=== PATIENT | male | born 2005 | race Two or more races ===

== ENCOUNTER 2025-04-22 01:13 | Emergency (ER) | payer OTHER ==
[~2025-04-22] VITALS: Ht 167.6 cm; Wt 72.7 kg
[2025-04-22 01:18] VITALS: BP 137/63; PULSE 86; RESP 16; TEMP 97.2; O2SAT 98
--- NOTE | 2025-04-22 02:36 | Physician Documentation ---
History of Present Illness ~ Chief Complaint: Abscess Stated Complaint: WOUND CHECK Time Seen by MD: 02:23 HPI Patient presents to the emergency room with abscess to his left buttock over the last few days. No fevers. No prior instances. Tetanus Within 5 Years: Yes Medication Reconciliation Allergies: Coded Allergies: amoxicillin (Verified Allergy, Intermediate, ITCHINESS, 04/22/25) Review of Systems ROS All review of systems negative except as per HPI Physical Exam Vital Signs: Temperature: 97.2, Source: Temporal, Heart Rate: 86, Respiratory Rate: 16, BP: 137/63, Pulse Oximetry: 98, Weight: 72.730 Oxygen Flow Rate: 0 Physical Exam General: Patient is awake, alert, oriented x4 in no acute distress and well appearing.~ Head: Normocephalic and atraumatic. Eyes: Conjunctival normal. EOMI. PERRL. ENT: Mucous membranes moist. Neck: Supple, trachea is midline. Chest: Clear to auscultation bilaterally without rales, rhonchi, or wheezes. There is no accessory muscle use or retractions. Cardiac: RRR without murmurs, gallops, or rubs. : 3 x 3 cm fluctuant abscess to left lower buttock. No cellulitis Procedures Procedures Incision and drainage: Status post informed verbal consent patient was sterilely cleaned and draped. Patient was anesthetized with 1% lidocaine with epinephrine to a total of 3 cc. 11. Blade utilized perform incision and drainage by making a 1 cm incision to abscess. Abscess was de loculated and a proximally 2 cc of purulent drainage along with some blood expressed. No packing placed. Patient tolerated procedure well without complication. Total time of procedure 10 minutes. Progress Results/Orders Results/Orders Vital Signs 04/22/25 01:18 Temp 97.2 Pulse 86 Resp 16 B/P (MAP) 137/63 Pulse Ox 98 O2 Flow Rate 0 Medical Decision Making Findings Patient presented to the emergency room for evaluation of abscess to his left buttock. Differentials include but are not limited to abscess, cellulitis, foreign body, epidermal inclusion cyst. Physical exam is consistent with abscess therefore incision and drainage was performed with good expression of purulence. ER precautions regarding signs of her worsening of symptoms and fevers. Departure Disposition: 01 HOME / SELF CARE / HOMELESS Impression: Primary Impression: Abscess Condition: Improved Discharge Instructions: Incision and Drainage Additional Instructions: I do not feel antibiotics are necessary Referrals: NO PRIMARY CARE PROVIDER (PCP) Signature Scribe Signature: No scribe Attestation: The note accurately reflects work and decisions made by me.Domo Alicea MD 04/22/25 02:36 DOMO ALICEA MD Apr 22, 2025 02:36
== END 2025-04-22 02:48 | disposition home or self-care (01) ==
LOC: ER 01:15
DX: L02.31 Cutaneous abscess of buttock (principal); Z88.0 Allergy status to penicillin
CPT/HCPCS: 10060; 99282; A6407; A6258; A6449

== ENCOUNTER 2025-06-24 22:53 | Emergency (ER) | payer OTHER ==
[2025-06-24 23:04] VITALS: BP 116/67; PULSE 112; RESP 16; O2SAT 98
[2025-06-25] MEDS: sulfamethoxazole/trimethoprim DS (800/160mg) tablet PO ONE (01:03)
--- NOTE | 2025-06-25 01:28 | Physician Documentation ---
History of Present Illness ~ Chief Complaint: Abscess Stated Complaint: BUTTOCKS ABCESS Time Seen by MD: 01:24 HPI 19-year-old male presenting with a abscess on his left buttocks. He tells me that he has had 1 abscess in the past. It did have to be drained. Over the past week he has developed an area of swelling and pain over his left buttocks. Today it started to spontaneously drain some purulent material. No fevers, chills, or other infectious type symptoms. Allergy to amoxicillin Tetanus Within 5 Years: Yes Medication Reconciliation Allergies: Coded Allergies: amoxicillin (Verified Allergy, Intermediate, ITCHINESS, 06/24/25) Scheduled Sulfamethoxazole/Trimethoprim (Bactrim Ds Tablet), 1 TAB PO Q12H Review of Systems Constitutional: Denies: fever Integumentary: Reports: lumps Physical Exam Vital Signs: Temperature: 97.8, Source: Temporal, Heart Rate: 112, Respiratory Rate: 16, BP: 116/67, Pulse Oximetry: 98 Physical Exam General: This is a thin healthy-appearing young man, not in acute distress HEENT: Atraumatic, oropharynx is moist Heart: Mild tachycardic, appears regular Lungs: normal work of breathing, normal oxygen saturation on room air Buttocks: The exam was chaperoned by a nurse at all times. On the mid left buttocks, the patient has an area of induration and tenderness measuring around 8 cm in diameter, with a small opening with purulent drainage Neuro: Alert and oriented Psychiatric: Calm and cooperative with exam Procedures I & D Procedure : Site: Left buttocks Anesthesia: Lidocaine w/ Epi Blade Size: 11 Prep/Supplies: dressing applied, irrigated, packing placed Incision: mass incised, pus drained Tolerated Procedure Well?: yes, no complications Procedure Note The wound was cleaned with alcohol. The open draining wound was incised and enlarged. The abscess was de loculated and large amount of purulent material was expressed. A small amount of packing was placed and then bandaged. Progress Results/Orders Results/Orders Completed Orders - ZACH LINO MD Sulfamethox/Trimetho. Ds Tab ( Ds (06/25/25 01:55) Medications Received in ER Medications (Trade) Dose Ordered Sig/Tiarra Route PRN Reason Start Time Stop Time Status Last Admin Dose Admin ( DS tab) 1 tab ONCE ONCE PO 06/25/25 01:55 11/2/25 01:56 DC 06/25/25 01:03 1 TAB Vital Signs 06/24/25 06/25/25 23:04 01:59 Temp 97.8 97.8 Pulse 112 Resp 16 B/P (MAP) 116/67 Pulse Ox 98 Medical Decision Making Additional information obtaine: N/A Findings na Differential Dx:Considerations: Include: Abscess, Cellulitis Additional Comment The patient presents with an abscess on his buttocks. It was opened and drained. He will be treated with a course of antibiotics given the location and size of the abscess. He was given home care instructions and return precautions. Departure Time of Disposition: 01:52 Disposition: HOME / SELF CARE / HOMELESS Impression: Primary Impression: Abscess Condition: Improved Discharge Instructions: Abscess, Care After Referrals: NO PRIMARY CARE PROVIDER (PCP) Prescriptions Sulfamethoxazole/Trimethoprim (Bactrim Ds Tablet) 800 Mg-160 Mg Tablet 1 TAB PO Q12H for 7 Days, #14 TAB Prov: ZACH LINO MD 06/25/25 Education Educated: Patient Educated regarding: diagnosis, treatment, need for follow up Signature Scribe Signature: na Attestation: ZACH Armstrong MD Jun 25, 2025 01:28
[2025-06-25] MEDS ORDERED: SULF1TAB49 PO (01:53)
[2025-06-25 01:59] VITALS: TEMP 97.8
== END 2025-06-25 01:05 | disposition home or self-care (01) ==
LOC: ER 22:54
DX: L02.31 Cutaneous abscess of buttock (principal); Z88.1 Allergy status to other antibiotic agents; Z79.899 Other long term (current) drug therapy
CPT/HCPCS: 10060; 99283; A6266; A6407; A6258; A6449

== ENCOUNTER 2025-08-11 19:11 | Emergency (ER) | payer MEDICAID, OTHER ==
--- NOTE | 2025-08-11 19:31 | ELECTROCARDIOGRAPH REPORT ---
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
[2025-08-11 20:42] LABS: MEAN PLATELET VOLUME 8.4 FL (7.4-10.4); RED CELL DISTRIBUTION WIDTH 13.8 % (11.5-14.5)
--- NOTE | 2025-08-11 20:52 | RADIOLOGY REPORT ---
CHEST RADIOGRAPH INDICATION: CP TECHNIQUE: Single frontal view of the chest was obtained COMPARISON: None FINDINGS: Lungs and pleural spaces are clear. Cardiac silhouette and eber are within normal limits. Bones and soft tissues demonstrate no significant abnormality. IMPRESSION: No acute disease.
[2025-08-11 21:02] LABS: CREATININE 0.80 MG/DL (0.60-1.10); PRO BRAIN NATRIURETIC PEPTIDE < 30 PG/ML (0-125); TOTAL CARBON DIOXIDE 27.0 MMOL/L (24-32); eGFR > 90 ML/MIN
--- NOTE | 2025-08-11 22:47 | Physician Documentation ---
History of Present Illness ~ Chief Complaint: Syncope Stated Complaint: SYNCOPE Time Seen by MD: 21:17 Mode of Arrival: POV HPI This is a 19-year-old male who presents for evaluation of a loss of consciousness event. He states that he was in his kitchen, drank some cold water in order to help his toothache that he has been experiencing for a month, got lightheaded, felt that he was about to lose consciousness and subsequently did not lose consciousness. He did not collapsed to the ground. He was caught by his mother. He regained consciousness when lower to the floor. The postictal period. No altered mental status/abnormal behavior. No seizure-like activity. He denies any preceding chest pain or difficulty breathing. This never happened in the past. Did not attempt to treat it. Mom handed him a chicken noodle soup in order to make him feel better, however the soup got sp illed with the paramedics were taking him out of the house. Continues to complain of a toothache in his upper lateral incisor. Did not treat it with a any medication. This has been present for a month. Does not have a dentist because he does not have insurance. Denies any symptoms at the time of my examination. Denies any concerns for tobacco, alcohol or illicit substances use. Medication Reconciliation Allergies: Coded Allergies: amoxicillin (Verified Allergy, Intermediate, ITCHINESS, 08/11/25) Review of Systems ROS 10 point review of systems was performed and unless noted above in HPI is negative for acute process/complaint. Physical Exam Vital Signs: Temperature: 96.3, Source: Temporal, Heart Rate: 75, Respiratory Rate: 15, BP: 110/65, Pulse Oximetry: 99 Physical Exam GENERAL: Awake, alert, oriented, GCS 15, no apparent distress, non-toxic appearing, answers questions, follows commands appropriately. Examined in bed 19, accompanied by mom HEENT: Atraumatic, normocephalic, pupils equal, extraocular muscles intact, sclerae anicteric, mucus membranes moist, oropharynx is clear, no stridor. NECK: supple, full active range of motion, trachea midline, no thyromegaly, no lymphadenopathy, no JVD. CARDIOVASCULAR: regular rate/rhythm, no murmurs/gallops/rubs, Pulses are 2+ in all extremities and symmetric. Capillary refill less than 2 seconds. PULMONARY: Nonlabored, good air movement ,no respiratory distress, speaking in full sentences, clear to auscultation bilaterally, no wheezing, no ronchi, no r ales, no accessory muscle use. GASTROINTESTINAL: Soft, non-tender, non-distended, normal active bowel sounds, no organomegaly, no pulsatile masses, no CVA tenderness. NEUROLOGIC: Lucid with normal mental status. Normal facial symmetry. Moves all extremities symmetrically and with purpose. No truncal ataxia. Speech is fluid without evidence of dysarthria or aphasia, no focal deficits appreciated. MUSCULOSKELETAL: There is full range of motion of all extremities. There is no joint pain or joint swelling or joint erythema. There is no muscle pain or tenderness or swelling. EXTREMITIES: warm, well-perfused, no cyanosis, no clubbing, no edema, no acute deformities. Skin: warm, dry, no rashes or lesions, no jaundice, no petechiae orpurpura. No ecchymosis. PSYCHIATRIC: Normal affect, normal insight, normal concentration. Focused exam: [] Progress Results/Orders Results/Orders Orders - ALEX GARCÍA DO Chest,Single View (08/11/25 19:30) Monitor (08/11/25 19:30) Saline Lock (08/11/25:30) Oxygen (08/11/25:30) Hs Troponin I W Calculations (08/11/25 22:30) Completed Orders - ALEX GARCÍA DO Chest,Single View (08/11/25 19:30) Cbc/Diff (08/11/25:30) BMP (08/11/25:30) PBNP (08/11/25:30) Electrocardiogram (08/11/25:30) Hs Troponin I W Calculations (08/11/25 19:30) Hs Troponin I W Calculations (08/11/25 21:30) Vital Signs 08/11/25 19:28 Temp 96.3 Pulse 75 Resp 15 B/P (MAP) 110/65 Pulse Ox 99 Laboratory Tests Test 08/11/25 20:06 08/11/25 21:37 White Blood Count 6.2 Red Blood Count 5.20 Hemoglobin 15.1 Hematocrit 44.6 Mean Corpuscular Volume 85.8 Mean Corpuscular Hemoglobin 29.1 Mean Corpuscular Hemoglobin Concent 33.9 Red Cell Distribution Width 13.8 Platelet Count 266 Mean Platelet Volume 8.4 Neutrophils (%) (Auto) 57.5 Lymphocytes (%) (Auto) 35.7 Monocytes (%) (Auto) 4.5 Eosinophils (%) (Auto) 1.9 Basophils (%) (Auto) 0.4 Neutrophils # (Auto) 3.6 Lymphocytes # (Auto) 2.2 Monocytes # (Auto) 0.3 Eosinophils # (Auto) 0.1 Basophils # (Auto) 0.0 CBC Comment Sodium Level 140 Potassium Level 4.3 Chloride Level 103 Carbon Dioxide Level 27.0 Anion Gap 10 Blood Urea Nitrogen 14 Creatinine 0.80 Estimated GFR/1.73 m2 > 90 BUN/Creatinine Ratio 17.5 Glucose Level 112 H Calcium Level 8.6 Troponin I High Sensitivity 4 4 Pro-B-Type Natriuretic Peptide < 30 Albumin 3.7 Chemistry Comments Troponin I High Sens Percent Delta 0 Troponin I Hi Sens Absolute Change 0 EKG/XRAY/CT/US/VASC/MRI EKG : Additional Comment EKG was obtained and interpreted by myself shows sinus rhythm, rate of 75, normal OK interval, narrow QRS, no QT prolongation, right axis, no STEMI. T- wave inversion in three noted. Medical Decision Making Additional information obtaine: family Findings Facility Status: ED Holds, RME process The plan was discussed with the patient, who demonstrates clear understanding of the plan and is in agreement with the plan unless otherwise noted in the chart. All questions have been answered, all concerns were addressed unless otherwise documented. I was available throughout their ED stay for frequent reassessment and questions. Differential Diagnoses (considered and possible or likely): [Most likely he describes a vasovagal syncope, less likely orthostatic event, unlikely malignant arrhythmia ventricular origin. Dehydration electrolyte derangement had also been considerably. Less likely CHF or ACS.] ??Differential Diagnoses (considered and unlikely, not requiring evaluation c urrently): [No evidence of traumatic injuries a result of the fall. No evidence of lateralizing sinuses suspect a stroke. Clinically not consistent with seizure] MDM Data Please see HPI for the following: Independent Historians and external Records Review. Historian: [Patient] Independent Historians: ?[Mother] Medication Management: [Reviewed medication list] Social History and determinants: [Reviewed] Please see the body of the note for the following: Any independent interpretations of ECG, imaging studies. All vitals signs/haemodynamics, ordered tests were independently reviewed and interpreted by myself. Nursing triage complaint and vitals reviewed, additional nursing notes were reviewed as available and I agree unless otherwise noted or documented in contradiction in the chart Vital Signs: Independently reviewed Labs: Independently interpreted Imaging: Independently interpreted Old Medical Records: Independently reviewed, see HPI for relevant summary and information Pulse Oximetry: [100%] interpreted as [normal on room air] by me [[employer] W[employer] Saw Operator: [Regular Rate, Regular rhythm, no ectopy, NSR] reviewed and interpreted by me] Additionally notably showing: [Hemodynamics reviewed. The patient isn't febrile, not hypotensive, no evidence of respiratory distress, no tachycardia. CBC normal. Metabolic panel shows borderline dehydration. Troponin is negative. BNP is normal. Chest x-ray is unremarkable.] Tests considered but not ordered include: [Advanced imaging does not appear to be necessary] Social Determinants of Health Impact: Patient was [place] in [facility] [place] to healthcare due to below par ratio of patient to medical providers. [] Comorbid Conditions Impacting Present Evaluation and Care/Treatment: [Dental pain] Management Discussions with other Healthcare Providers: [Mental health services] Treatment and Disposition Medication Management (Given or considered): []. See EMR for details Consideration for Hospitalization/Escalation/Deescalation of Care: Admission for observation has been considered, [however the patient is able to tolerate p.o., their symptoms are controlled, they are able to rely on oral medications, and their chief complaint/diagnosis can be managed on outpatient basis.] ?ED Course:?[No clinical deterioration. No recurrence of syncope. Benign workup. Appears to be benign syncope from standpoint of [place] syncope rules.] ?Shared decision making:?[Patient is hemodynamically stable for discharge home with follow with their primary care provider. [ ] Specific and cautious return precautions provided and discussed with full understanding. Any incidental findings were also discussed and follow up recommendations given. [] All questions answered. Patient/family were able to verbalize back return precautions. Patient/family agree to plan. Copies of imaging and laboratory studies were provided.] Code status:?FULL Please see the full Electronic Medical Record for full details of nursing documentation, medications list, other records of complete past medical history and conditions, vital signs, laboratory studies, and any radiologic study interpretations by radiologists. Portions of this note were completed using [employer] dictation software and as a result there may exist minor errors in spelling. I have reviewed elements of past family and social history and agree as included in note. Differential Dx:Considerations: Include: other (See body of may note for differential diagnosis) Departure Disposition: HOME / SELF CARE / HOMELESS Impression: Primary Impression: Syncope Additional Impression: Dental infection Condition: Improved Discharge Instructions: Dental Abscess, Syncope, Adult Referrals: NO PRIMARY CARE PROVIDER (PCP) Prescriptions Clindamycin HCl (Clindamycin HCl CAPSULE) 150 Mg Capsule 3 CAP PO TID for 10 Days, #90 CAP Prov: ALEX GARCÍA DO 08/11/25 Education Educated: Patient, Family Educated regarding: diagnosis, treatment, prognosis, need for follow up Signature Scribe Signature: No scribe Attestation: Of courseThe note accurately reflects work and decisions made by me.Alex García DO 08/11/25 22:48 ALEX GARCÍA DO Aug 11, 2025 22:47
[2025-08-11] MEDS ORDERED: CLIN-214 PO (22:48)
[2025-08-11 23:01] VITALS: BP 124/80; PULSE 80; RESP 18; TEMP 98; O2SAT 99
== END 2025-08-11 23:03 | disposition home or self-care (01) ==
LOC: ER 19:12
DX: R55 Syncope and collapse (principal); K04.7 Periapical abscess without sinus; Z88.1 Allergy status to other antibiotic agents
CPT/HCPCS: 36415; 71045; 80048; 83880; 84484; 85025; 93005; 99285